=== PATIENT | female | born 1965 | race Caucasian/White ===

== ENCOUNTER 2021-05-18 22:38 | Inpatient (IN) | payer MEDICAID, SELFPAY ==
[~2021-05-18] VITALS: Ht 177.8 cm; Wt 81.6 kg
[2021-05-18 22:39] VITALS: BP_SYST 136
[2021-05-18] MEDS ORDERED: AMLO5TAB4 PO (23:18)
[2021-05-18] MEDS ORDERED: METO25TA3 PO (23:18)
[2021-05-18] MEDS ORDERED: LEVO150T8 PO (23:19)
[2021-05-18] MEDS ORDERED: ASPI-1393 PO (23:20)
[2021-05-19] MEDS ORDERED: KETOROLAC TROMETHAMINE 30 MG VIAL IVP ONE (00:15)
[2021-05-19] MEDS ORDERED: ENALAPRILAT DIHYDRATE 1.25 MG/ML VIAL IVP ONE (00:15)
[2021-05-19 00:30] LABS: BASOPHILS # (AUTO) 0.1 K/uL (0.0-0.2); BASOPHILS % (AUTO) 1.4 % (0.0-2.0); EOSINOPHILS # (AUTO) 0.2 K/uL (0.0-0.4); EOSINOPHILS % (AUTO) 2.6 % (0.0-4.0); HEMATOCRIT 42.9 % (36-48); HEMOGLOBIN 14.3 g/dL (12.0-16.0); LYMPHOCYTES % (AUTO) 10.3 % (20.5-51.5); MEAN CORPUSCULAR HEMOGLOBIN 29 pg (27-31); MEAN CORPUSCULAR HGB CONC 33 % (32-36); MEAN CORPUSCULAR VOLUME 88 fL (79.0-98.0); MONOCYTES # (AUTO) 0.7 K/uL (0.0-1.0); NEUTROPHILS # (AUTO) 7.2 K/uL (1.8-7.7); NEUTROPHILS % (AUTO) 77.7 % (40.0-70.0); PLATELET COUNT (AUTO) 210 K/uL (130-430); RED BLOOD CELL COUNT(AUTO) 4.91 MIL/uL (4.2-6.2); RED CELL DISTRIBUTION WIDTH 14.1 % (9.0-15.0); WHITE BLOOD COUNT (AUTO) 9.3 K/uL (4.8-10.8)
[2021-05-19 00:34] LABS: CALCIUM 9.5 mg/dL (8.4-11.0); CREATININE 1.54 mg/dL (0.55-1.30); POTASSIUM 3.9 mmol/L (3.5-5.1)
[2021-05-19 00:45] LABS: ALBUMIN 3.2 g/dL (3.4-4.8); TOTAL BILIRUBIN 0.3 mg/dL (0.0-1.0)
[2021-05-19] MEDS ORDERED: cefTRIAXone 1 GM IVPB PREMIX 50 ML IV ONE (01:00)
[2021-05-19] MEDS ORDERED: MORPHINE 4 MG INJ. 4 MG/ML VIAL IVP ONE (01:00)
[2021-05-19] MEDS ORDERED: ATORVASTATIN 20 MG TABLET PO SCH (09:45)
[2021-05-19] MEDS ORDERED: METOPROLOL SUCCINATE 50 MG TAB.SR.24H (TOPROL XL) PO SCH (09:45)
[2021-05-19] MEDS ORDERED: NALOXONE HCL 0.4 MG/ML AMP (NARCAN) IVP PRN (09:45)
[2021-05-19] MEDS ORDERED: ONDANSETRON HCL 4 MG/2 ML VIAL IVP PRN (11:00)
[2021-05-19] MEDS ORDERED: DOCUSATE SODIUM 100 MG CAPSULE PO PRN (11:00)
[2021-05-19] MEDS ORDERED: ACETAMINOPHEN 325 MG TABLET PO PRN (11:00)
[2021-05-19] MEDS: NACL 0.9% 1,000 ML IV SCH ×2 (12:23→23:01)
[2021-05-19] MEDS: MORPHINE 2 MG/ML INJ. SYRINGE IVP PRN ×2 (12:41→20:45)
[2021-05-19 15:32] LABS: FREE T4 (FREE THYROXINE) 0.8 ng/dl (0.8-1.5); PHOSPHORUS 5.8 mg/dL (2.7-4.5); THYROID STIMULATING HORMONE 12.9 uIu/mL (0.36-3.74)
[2021-05-19] MEDS ORDERED: MORPHINE 2 MG/ML INJ. SYRINGE ONE (20:47)
[2021-05-19] MEDS: ENOXAPARIN SODIUM 80 MG/0.8 ML SYRINGE SUBCUT SCH (20:56)
[2021-05-19] MEDS ORDERED: *LOVENOX 1MG/KG Q12H/PHARMACY XX PRN (21:00)
[2021-05-20] MEDS: MORPHINE 2 MG/ML INJ. SYRINGE IVP PRN ×3 (03:54→13:49)
[2021-05-20] MEDS: NACL 0.9% 1,000 ML IV SCH (06:50)
[2021-05-20] MEDS: LEVOTHYROXINE SODIUM 0.15 MG TABLET PO SCH (07:05)
[2021-05-20 07:29] LABS: BASOPHILS # (AUTO) 0.1 K/uL (0.0-0.2); BASOPHILS % (AUTO) 1.1 % (0.0-2.0); EOSINOPHILS # (AUTO) 0.2 K/uL (0.0-0.4); EOSINOPHILS % (AUTO) 2.9 % (0.0-4.0); HEMATOCRIT 37.2 % (36-48); HEMOGLOBIN 12.2 g/dL (12.0-16.0); LYMPHOCYTES % (AUTO) 14.6 % (20.5-51.5); MEAN CORPUSCULAR HEMOGLOBIN 29 pg (27-31); MEAN CORPUSCULAR HGB CONC 33 % (32-36); MEAN CORPUSCULAR VOLUME 88 fL (79.0-98.0); MONOCYTES # (AUTO) 0.8 K/uL (0.0-1.0); MONOCYTES % (AUTO) 10.7 % (1.7-9.3); NEUTROPHILS % (AUTO) 70.7 % (40.0-70.0); PLATELET COUNT (AUTO) 168 K/uL (130-430); RED BLOOD CELL COUNT(AUTO) 4.24 MIL/uL (4.2-6.2); RED CELL DISTRIBUTION WIDTH 14.2 % (9.0-15.0); WHITE BLOOD COUNT (AUTO) 7.1 K/uL (4.8-10.8)
[2021-05-20 08:22] LABS: CALCIUM 8.9 mg/dL (8.4-11.0); CREATININE 1.43 mg/dL (0.55-1.30); POTASSIUM 4.2 mmol/L (3.5-5.1)
[2021-05-20 08:30] LABS: ALBUMIN 2.6 g/dL (3.4-4.8); PHOSPHORUS 3.8 mg/dL (2.7-4.5); TOTAL BILIRUBIN 0.3 mg/dL (0.0-1.0)
[2021-05-20] MEDS ORDERED: METOPROLOL SUCCINATE 50 MG TAB.SR.24H (TOPROL XL) PO SCH (09:00)
[2021-05-20] MEDS: ASPIRIN 81 MG TABLET(ECOTRIN) PO SCH (09:03)
[2021-05-20] MEDS: amLODIPine BESYLATE 5 MG TABLET PO SCH (09:05)
[2021-05-20] MEDS: ENOXAPARIN SODIUM 80 MG/0.8 ML SYRINGE SUBCUT SCH (09:07)
[2021-05-20] MEDS ORDERED: ENOXAPARIN SODIUM 80 MG/0.8 ML SYRINGE ONE (09:07)
[2021-05-20 10:00] VITALS: BP_SYST 148
[2021-05-20] MEDS: ATORVASTATIN 20 MG TABLET PO SCH (11:03)
[2021-05-20] MEDS: METOPROLOL SUCCINATE 25 MG TAB.SR.24H (TOPROL XL) PO SCH (11:04)
[2021-05-20 12:02] VITALS: BP_SYST 149
[2021-05-20 16:01] VITALS: BP_SYST 137
[2021-05-20] MEDS: traMADol HCL HCL 50 MG TABLET (ULTRAM) PO PRN (19:03)
[2021-05-20 19:30] VITALS: BP_SYST 142
[2021-05-20 20:10] VITALS: BP_SYST 142
[2021-05-20] MEDS: APIXABAN 2.5 MG TABLET PO SCH (21:26)
[2021-05-20 21:30] LABS: BILIRUBIN,URINE NEGATIVE (NEGATIVE); CLARITY/URINE CLEAR (CLEAR); COLOR,URINE YELLOW (YELLOW); GLUCOSE,URINE NEGATIVE (NEGATIVE); KETONES,URINE NEGATIVE (NEGATIVE); LEUKOCYTE ESTERASE ,URINE NEGATIVE (NEGATIVE); NITRITE, URINE NEGATIVE (NEGATIVE); PROTEIN URINE NEGATIVE (NEGATIVE); UROBILINOGEN,URINE 0.2 (0.2-1.0)
[2021-05-20 21:48] LABS: BARBITURATE, URINE NEGATIVE (NEG <=200); BENZODIAZEPINE, URINE NEGATIVE (NEG <=150); CANNABINOID, URINE POSITIVE (NEG <=50); COCAINE, URINE NEGATIVE (NEG <=150); METHAMPHETAMINES SCREEN,URINE POSITIVE (NEG <=500); OPIATE, URINE POSITIVE (NEG <=100); PHENCYCLIDINE SCREEN,URINE NEGATIVE (NEG <=25); UR TRICYCLIC ANTIDEPRESSANTS NEGATIVE (NEG <=300); URINE AMPHETAMINE POSITIVE (NEG <=500); URINE METHADONE NEGATIVE (NEG <=200); URINE OXYCODONE SCREEN NEGATIVE (NEG <=100); URINE PROPOXYPHENE SCREEN NEGATIVE (NEG <=300)
[2021-05-20 22:37] LABS: BLOOD, URINE TRACE (NEGATIVE)
[2021-05-20 23:44] LABS: BACTERIA,URINE RARE /HPF (None Seen); RBC,URINE 0-3 /HPF (0-3); WBC,URINE 0-3 /HPF (0-3)
[2021-05-21] VITALS: BP_SYST 131
[2021-05-21 04:16] VITALS: BP_SYST 133
[2021-05-21] MEDS: LEVOTHYROXINE SODIUM 0.15 MG TABLET PO SCH (06:14)
[2021-05-21 07:35] LABS: BASOPHILS # (AUTO) 0.1 K/uL (0.0-0.2); BASOPHILS % (AUTO) 0.9 % (0.0-2.0); EOSINOPHILS # (AUTO) 0.2 K/uL (0.0-0.4); EOSINOPHILS % (AUTO) 3.1 % (0.0-4.0); HEMOGLOBIN 12.3 g/dL (12.0-16.0); LYMPHOCYTES # (AUTO) 0.9 K/uL (1.0-5.5); LYMPHOCYTES % (AUTO) 15.9 % (20.5-51.5); MEAN CORPUSCULAR HEMOGLOBIN 28 pg (27-31); MEAN CORPUSCULAR HGB CONC 33 % (32-36); MEAN CORPUSCULAR VOLUME 88 fL (79.0-98.0); MONOCYTES # (AUTO) 0.6 K/uL (0.0-1.0); MONOCYTES % (AUTO) 10.5 % (1.7-9.3); NEUTROPHILS # (AUTO) 4.1 K/uL (1.8-7.7); NEUTROPHILS % (AUTO) 69.6 % (40.0-70.0); PLATELET COUNT (AUTO) 166 K/uL (130-430); RED BLOOD CELL COUNT(AUTO) 4.35 MIL/uL (4.2-6.2); WHITE BLOOD COUNT (AUTO) 5.9 K/uL (4.8-10.8)
[2021-05-21 07:54] LABS: CALCIUM 9.2 mg/dL (8.4-11.0); CREATININE 1.34 mg/dL (0.55-1.30); POTASSIUM 4.1 mmol/L (3.5-5.1)
[2021-05-21 08:00] VITALS: BP_SYST 163
[2021-05-21 08:02] LABS: PHOSPHORUS 4.1 mg/dL (2.7-4.5)
[2021-05-21] MEDS: ASPIRIN 81 MG TABLET(ECOTRIN) PO SCH (08:23)
[2021-05-21] MEDS: ATORVASTATIN 20 MG TABLET PO SCH (08:24)
[2021-05-21] MEDS: METOPROLOL SUCCINATE 25 MG TAB.SR.24H (TOPROL XL) PO SCH (08:24)
[2021-05-21] MEDS: amLODIPine BESYLATE 5 MG TABLET PO SCH (08:24)
[2021-05-21] MEDS: MORPHINE 2 MG/ML INJ. SYRINGE IVP PRN ×2 (08:27→20:05)
[2021-05-21] MEDS: APIXABAN 2.5 MG TABLET PO SCH ×2 (08:28→20:11)
[2021-05-21 12:00] VITALS: BP_SYST 142
[2021-05-21 16:00] VITALS: BP_SYST 140
[2021-05-21] MEDS: LORazepam 1 MG TABLET PO PRN (18:05)
[2021-05-21 20:00] VITALS: BP_SYST 147
[2021-05-22] VITALS: BP_SYST 147
[2021-05-22] MEDS: LEVOTHYROXINE SODIUM 0.15 MG TABLET PO SCH (06:23)
[2021-05-22 07:52] LABS: BASOPHILS # (AUTO) 0.1 K/uL (0.0-0.2); BASOPHILS % (AUTO) 0.9 % (0.0-2.0); EOSINOPHILS # (AUTO) 0.2 K/uL (0.0-0.4); EOSINOPHILS % (AUTO) 3.8 % (0.0-4.0); HEMATOCRIT 38.2 % (36-48); HEMOGLOBIN 12.7 g/dL (12.0-16.0); LYMPHOCYTES # (AUTO) 1.1 K/uL (1.0-5.5); LYMPHOCYTES % (AUTO) 17.5 % (20.5-51.5); MEAN CORPUSCULAR HEMOGLOBIN 29 pg (27-31); MEAN CORPUSCULAR HGB CONC 33 % (32-36); MEAN CORPUSCULAR VOLUME 86 fL (79.0-98.0); MONOCYTES # (AUTO) 0.7 K/uL (0.0-1.0); NEUTROPHILS # (AUTO) 4.4 K/uL (1.8-7.7); NEUTROPHILS % (AUTO) 66.8 % (40.0-70.0); PLATELET COUNT (AUTO) 202 K/uL (130-430); RED BLOOD CELL COUNT(AUTO) 4.43 MIL/uL (4.2-6.2); WHITE BLOOD COUNT (AUTO) 6.5 K/uL (4.8-10.8)
[2021-05-22 08:00] VITALS: BP_SYST 167
[2021-05-22 08:08] LABS: CALCIUM 9.4 mg/dL (8.4-11.0); CREATININE 1.31 mg/dL (0.55-1.30); POTASSIUM 4.3 mmol/L (3.5-5.1)
[2021-05-22] MEDS ORDERED: APIX5TAB4 PO (08:21)
[2021-05-22] MEDS: ASPIRIN 81 MG TABLET(ECOTRIN) PO SCH (08:33)
[2021-05-22] MEDS: amLODIPine BESYLATE 5 MG TABLET PO SCH (08:34)
[2021-05-22] MEDS: ATORVASTATIN 20 MG TABLET PO SCH (08:34)
[2021-05-22] MEDS: METOPROLOL SUCCINATE 25 MG TAB.SR.24H (TOPROL XL) PO SCH (08:34)
[2021-05-22] MEDS: APIXABAN 2.5 MG TABLET PO SCH (08:35)
[2021-05-22] MEDS: MORPHINE 2 MG/ML INJ. SYRINGE IVP PRN (08:36)
[2021-05-22 10:22] VITALS: BP_SYST 145
[2021-05-22] MEDS: LORazepam 1 MG TABLET PO PRN (11:25)
[2021-05-22] MEDS: traMADol HCL HCL 50 MG TABLET (ULTRAM) PO PRN (11:25)
[2021-05-22 12:09] VITALS: BP_SYST 144
[2021-05-22 16:16] VITALS: BP_SYST 140
== END 2021-05-22 16:45 | disposition home or self-care (01) | DRG 190 ==
LOC: SED 22:38 → STU 05-19 02:08
PROVIDERS: ADMIT Family Medicine; ATTEND Family Medicine
DX: I21.4 Non-ST elevation (NSTEMI) myocardial infarction (principal); N17.0 Acute kidney failure with tubular necrosis; E43 Unspecified severe protein-calorie malnutrition; I82.432 Acute embolism and thrombosis of left popliteal vein; J44.9 Chronic obstructive pulmonary disease, unspecified; I25.10 Atherosclerotic heart disease of native coronary artery without angina pectoris; E03.9 Hypothyroidism, unspecified; I13.0 Hypertensive heart and chronic kidney disease with heart failure and stage 1 through stage 4 chronic kidney disease, or unspecified chronic kidney disease; N18.9 Chronic kidney disease, unspecified; F17.210 Nicotine dependence, cigarettes, uncomplicated; I42.0 Dilated cardiomyopathy; Z20.822 Contact with and (suspected) exposure to COVID-19; F15.10 Other stimulant abuse, uncomplicated; I50.9 Heart failure, unspecified; Z95.5 Presence of coronary angioplasty implant and graft; Z95.1 Presence of aortocoronary bypass graft; Z68.25 Body mass index [BMI] 25.0-25.9, adult; Z79.82 Long term (current) use of aspirin; Z79.899 Other long term (current) drug therapy; Z71.51 Drug abuse counseling and surveillance of drug abuser; Z71.6 Tobacco abuse counseling
CPT/HCPCS: 36415; 71045; 78579; 78580-TC; 80048; 80053; 80061; 80307; 81000; 82150; 83036; 83690; 83735; 83880; 84100; 84439; 84443; 84484; 84703; 85025; 85379; 87040-TC; 87086; 93005; 93306; 93970; 96365; 96375; 99285; A9539; A9540; G0378; J0696; J1650; J1885; J2270

== ENCOUNTER 2022-03-07 13:52 | Emergency (ER) | payer MEDICAID ==
[~2022-03-07] VITALS: Ht 180.3 cm; Wt 90.7 kg
[~2022-03-07 13:52] MED LIST: ALBMDI INH; APIX5TAB4 PO; ASPI-1393 PO; BUDE6HFA INH; FAMO20TA8 PO; GABA-529 PO; LEVO150T8 PO; LIP40 PO; NITSL SL; NOR10 PO
--- NOTE | 2022-03-07 14:00 | NUR ---
Patient to ER bed 1 for evaluation. Side rails up. Report given to Bk IGNACIO.
--- NOTE | 2022-03-07 14:00 | NUR ---
MD QUEZADA AT BEDSIDE ASSESSING PT.
--- NOTE | 2022-03-07 14:05 | NUR ---
EKG, AND PT ON TELE MONITOR COMPLETE. PT IS STABLE ALL VS ARE WNL.
[2022-03-07] MEDS ORDERED: ALBUTEROL SULFATE 0.083% 2.5 MG/3 ML VIAL.NEB INH ONE (14:26)
[2022-03-07 14:27] LABS: BASOPHILS # (AUTO) 0.1 K/uL (0.0-0.2); EOSINOPHILS # (AUTO) 0.1 K/uL (0.0-0.4); HEMATOCRIT 50.6 % (36-48); HEMOGLOBIN 16.6 g/dL (12.0-16.0); LYMPHOCYTES # (AUTO) 1.1 K/uL (1.0-5.5); LYMPHOCYTES % (AUTO) 16.7 % (20.5-51.5); MEAN CORPUSCULAR HEMOGLOBIN 30 pg (27-31); MEAN CORPUSCULAR HGB CONC 33 % (32-36); MEAN CORPUSCULAR VOLUME 90 fL (79.0-98.0); MONOCYTES # (AUTO) 0.4 K/uL (0.0-1.0); MONOCYTES % (AUTO) 6.2 % (1.7-9.3); NEUTROPHILS # (AUTO) 5.1 K/uL (1.8-7.7); NEUTROPHILS % (AUTO) 75.1 % (40.0-70.0); PLATELET COUNT (AUTO) 196 K/uL (130-430); RED BLOOD CELL COUNT(AUTO) 5.62 MIL/uL (4.2-6.2); RED CELL DISTRIBUTION WIDTH 15.5 % (9.0-15.0); WHITE BLOOD COUNT (AUTO) 6.7 K/uL (4.8-10.8)
[2022-03-07 14:42] LABS: ANION GAP 9 (5-15); CALCIUM 9.1 mg/dL (8.4-11.0); CHLORIDE 103 mmol/L (98-107); CREATININE 1.88 mg/dL (0.55-1.30); GLUCOSE 110 mg/dL (70-99); POTASSIUM 3.9 mmol/L (3.5-5.1); SODIUM SERUM 139 mmol/L (136-145); UREA NITROGEN, BLOOD 34 mg/dL (8-21)
[2022-03-07 14:44] LABS: GFR AFRICAN AMERICAN 36 mL/min (>90)
--- NOTE | 2022-03-07 14:44 | NUR ---
BREATHING TX BY RT GIVEN. PT DOING WELL.
[2022-03-07 14:50] LABS: ALANINE AMINOTRANSFERASE 15 U/L (12-78); ALBUMIN 3.9 g/dL (3.4-4.8); ASPARTATE AMINOTRANSFERASE 27 U/L (10-37); TOTAL BILIRUBIN 0.3 mg/dL (0.0-1.0)
--- NOTE | 2022-03-07 14:55 | NUR ---
TROPONIN LEVEL GIVEN TO
--- NOTE | 2022-03-07 17:09 | NUR ---
pt refused covid julio test
--- NOTE | 2022-03-07 17:15 | NUR ---
PT REFUSED TO BE TRANFERRED TO ANOTHER HOSPITAL PER HER INSURANCE. PT REFUSED COVID TEST, THEN STATED "TAKE MY IV OUT'. PT WANTED TO SIGN OUT AND GO HOME. RN SPOKE WITH MD. SPOKE WITH PT. RN OBTAINED AMA FORM, PT SIGNED.
--- NOTE | 2022-03-07 17:26 | NUR ---
RN REMOVED IV ACCESS COMPLETE, GAUZE PLACED. PT WALKED OUT.
[2022-03-07 17:28] VITALS: BP_SYST 148
--- NOTE | 2022-03-07 17:28 | NUR ---
RN NOTES PT WAS STABLE, STEADY GAIT. NORMAL VITALS SIGNS.
== END 2022-03-07 17:28 | disposition left against medical advice (07) ==
LOC: SED 13:52
DX: I21.4 Non-ST elevation (NSTEMI) myocardial infarction (principal); J44.9 Chronic obstructive pulmonary disease, unspecified; R07.9 Chest pain, unspecified; R06.02 Shortness of breath; I10 Essential (primary) hypertension; F17.210 Nicotine dependence, cigarettes, uncomplicated; Z79.899 Other long term (current) drug therapy
CPT/HCPCS: 36415; 71045; 80053; 83880; 84484; 85025; 93005; 99291; 99292; J7613; 99285